=== PATIENT | male | born 1980 | race Two or more races ===

== ENCOUNTER → 2020-09-04 | Outpatient (CLI) | payer OTHER ==
[2020-09-04 12:00] LABS: BASOPHILS % (AUTO) 1 % (0-1); EOSINOPHILS % (AUTO) 1 % (1-7); HCT (SEDRATE) 43.4 % (39.2-51.8); LYMPHOCYTES % (AUTO) 28 % (22-44); MEAN CORPUSCULAR HEMOGLOBIN 31.6 pg (27.5-34.5); MEAN CORPUSCULAR HGB CONC 34.7 g/dL (33.2-36.2); MEAN PLATELET VOLUME 6.9 fL (7.4-10.4); MONOCYTES % (AUTO) 8 % (2-9); NEUTROPHILS % (AUTO) 63 % (42-75); PLATELET COUNT 371 x10^3/uL (130-400); RED BLOOD COUNT 4.77 x10^6/uL (4.38-5.82); RED CELL DISTRIBUTION WIDTH 12.5 % (9.4-14.8)
[2020-09-04 12:01] LABS: MD NO
[2020-09-04 12:06] LABS: INTERNATIONAL NORMALIZED RATIO 0.94 (0.93-1.1)
[2020-09-04 12:09] LABS: ALBUMIN 4.6 g/dL (3.4-5.0); ANION GAP 5 mmol/L (5-15); CALCIUM 8.9 mg/dL (8.5-10.1); CHLORIDE 104 mmol/L (98-107)
[2020-09-04 12:13] LABS: ALANINE AMINOTRANSFERASE 151 U/L (12-78); ALKALINE PHOSPHATASE 93 U/L (45-117); BILIRUBIN,TOTAL 0.4 mg/dL (0.2-1.0); CREATININE 0.93 mg/dL (0.7-1.3); TOTAL PROTEIN 8.9 g/dL (6.4-8.2)
[2020-09-04 12:25] LABS: MICROSCOPIC NOT IND
== END | disposition home or self-care (01) ==
LOC: STAR 10:34
PROVIDERS: ATTEND Orthopaedic Surgery Orthopaedic Surgery of the Spine
DX: Z01.818 Encounter for other preprocedural examination (principal); M54.16 Radiculopathy, lumbar region; Z20.828 Contact with and (suspected) exposure to other viral communicable diseases
CPT/HCPCS: 71046; 80053; 80074; 81003; 85025; 85610; 85651; 85730; 87635; 87806; 93005; G0475

== ENCOUNTER 2020-09-10 05:29 | Day surgery (SDC) | payer OTHER ==
[~2020-09-10] VITALS: Ht 180.3 cm; Wt 99.4 kg
[2020-09-10 06:14] VITALS: BP 130/90
[2020-09-10] MEDS ORDERED: NO HOME MEDS PER PT (06:16)
[2020-09-10] MEDS ORDERED: CHLORHEXIDINE 15 ML UDC ONE (06:20)
[2020-09-10] MEDS ORDERED: CHLORHEXIDINE 15 ML UDC MM ONE (06:30)
[2020-09-10] MEDS ORDERED: LACTATED RINGERS 1,000 ML IV SCH (06:30)
[2020-09-10] MEDS ORDERED: BUPIVACAINE/PF 0.5% ONE (06:53)
[2020-09-10] MEDS ORDERED: LIDOCAINE 1%, 20ML ONE (06:54)
[2020-09-10] MEDS ORDERED: VANCOMYCIN 1,000 MG ONE (06:54)
[2020-09-10] MEDS ORDERED: BACITRACIN 50,000 UNIT ONE (06:54)
[2020-09-10] MEDS ORDERED: THROMBIN 5,000 UNIT VIAL TP ONE (06:54)
[2020-09-10] MEDS ORDERED: EPINEPHRINE 1 MG/ML, 1ML ONE (06:54)
[2020-09-10] MEDS ORDERED: MIDAZOLAM 1 MG/ML, 2ML ONE (07:24)
[2020-09-10] MEDS ORDERED: FENTANYL PF 250 MCG/5ML ONE (07:24)
[2020-09-10] MEDS ORDERED: LIDOCAINE GEL 2%, 5ML ONE (07:27)
[2020-09-10] MEDS ORDERED: FENTANYL PF 100 MCG/2ML IV PRN (07:30)
[2020-09-10] MEDS ORDERED: MEPERIDINE/PF 25MG/0.5ML IVPush PRN (07:30)
[2020-09-10] MEDS ORDERED: OXYcodone 5 MG/5 ML ORAL.SOL UDC PO PRN (07:30)
[2020-09-10] MEDS ORDERED: HYDROmorphone 1 MG/ML, 1ML INJ IVPush PRN (07:30)
[2020-09-10] MEDS ORDERED: PROMETHAZINE 25 MG/ML, 1ML IVPush PRN (07:30)
[2020-09-10] MEDS ORDERED: LABETALOL 5MG/ML, 20ML IV PRN (07:30)
[2020-09-10] MEDS ORDERED: DIPHENHYDRAMINE 50 MG/ML, 1ML IVPush PRN (07:30)
[2020-09-10] MEDS ORDERED: hydrALAzine 20 MG/ML, 1ML IV PRN (07:30)
[2020-09-10] MEDS ORDERED: HALOPERIDOL 5 MG/ML IV PRN (07:30)
[2020-09-10] MEDS ORDERED: HYDROcodone/APAP 7.5-325MG/15ML UDC PO PRN (07:30)
[2020-09-10] MEDS ORDERED: DEXAMETHASONE 4 MG/ML, 1ML ONE (07:50)
[2020-09-10] MEDS ORDERED: GENTAMICIN 80 MG/2 ML ONE ×2 (08:07)
[2020-09-10] MEDS ORDERED: FENTANYL PF 100 MCG/2ML ONE (09:41)
[2020-09-10] MEDS ORDERED: OXYcodone 5 MG/5 ML ORAL.SOL UDC ONE (09:41)
[2020-09-10] MEDS ORDERED: ONDANSETRON 2MG/ML, 2ML ONE (09:43)
[2020-09-10] MEDS ORDERED: ROCURONIUM 10MG/ML,5ML ONE (09:43)
[2020-09-10] MEDS ORDERED: PROPOFOL 10 MG/ML, 20ML ONE (09:43)
[2020-09-10] MEDS ORDERED: NEOSTIGMINE 1 MG/ML, 10ML ONE (09:43)
[2020-09-10] MEDS ORDERED: GLYCOPYRROLATE 0.2MG/1ML, 5ML ONE (09:43)
[2020-09-10] MEDS ORDERED: CEFAZOLIN 1,000 MG ONE (09:43)
[2020-09-10] MEDS ORDERED: SUCCINYLCHOLINE 20 MG/ML, 10ML ONE (09:43)
== END 2020-09-10 13:05 | disposition home or self-care (01) ==
LOC: OUT 05:29
PROVIDERS: ATTEND Orthopaedic Surgery Orthopaedic Surgery of the Spine
DX: M51.16 Intervertebral disc disorders with radiculopathy, lumbar region (principal); W17.89XA Other fall from one level to another, initial encounter; Y93.89 Activity, other specified; Y92.69 Other specified industrial and construction area as the place of occurrence of the external cause; Y99.0 Civilian activity done for income or pay
CPT/HCPCS: 63030; 72100; C1751; J0171; J0330; J0690; J1100; J1580; J2250; J2405; J2704; J2710; J3010; J7120; J3370